=== PATIENT | female | born 1995 ===

== ENCOUNTER 2018-03-15 00:47 | Emergency (ER) | payer MEDICAID ==
[2018-03-15 01:04] VITALS: O2SAT 100
--- NOTE | 2018-03-15 01:52 | ED PDOC ---
HPI: General Adult <Sultan Vipin - Last Filed: 03/15/18 03:29> <Regis Montelongo - Last Filed: 03/15/18 05:43> Time Seen by Provider: 03/15/18 01:25 Chief Complaint (Nursing): GI Problem Additional Complaint(s): 22 yo female with no significant PMHx presents to ED with complaints of left forearm numbness and tingling that radiates to left 5th digit since 10:30 pm last night. Pt reports she had mild nausea and dizziness last evening. Patient states she had several episodes of vomiting 3 days ago which resolved. Denies any injury to left arm. Denies any neck pain or neck injury. Denies any headache , blurry vision, chest pain, dyspnea, dyspnea on exertion. Denies any hx cardiac problems. ([place] Supervising Attending Note - Supervising Attending Note The Documented history was done by the: Physician Supervisor Sound Technician The documented physical exam was done by the: Physician Supervisor Sound Technician The documented procedures were done by the: Physician Supervisor Sound Technician - Attestation: I have personally seen and examined this patient.: Yes I have fully participated in the care of the patient.: Yes I have reviewed all pertinent clinical information, including history, physical exam and plan: Yes <Regis Montelongo - Last Filed: 03/15/18 05:43> Past Medical History - Family History Family History: States: Diabetes <Sultan Vipin - Last Filed: 03/15/18 03:29> <Regis Montelongo - Last Filed: 03/15/18 05:43> Vital Signs: Last Vital Signs Temp 98.6 F 03/15/18 03:40 Pulse 82 03/15/18 03:40 Resp 18 03/15/18 03:40 BP 120/88 03/15/18 03:40 Pulse Ox 100 03/15/18 03:40 - Allergies Allergies/Adverse Reactions: Allergies Allergy/AdvReac Type Severity Reaction Status Date / Time No Known Allergies Allergy Verified 03/15/18 01:04 Review of Systems Constitutional: Negative for: Fever, Chills, Sweats ENT: Negative for: Ear Pain, Ear Discharge, Nose Congestion Cardiovascular: Negative for: Chest Pain, Palpitations, Orthopnea Respiratory: Negative for: Cough, Shortness of Breath Gastrointestinal: Negative for: Vomiting, Abdominal Pain, Diarrhea, Constipation Genitourinary Female: Negative for: Dysuria Musculoskeletal: Negative for: Neck Pain, Shoulder Pain Skin: Negative for: Rash Neurological: Positive for: Numbness. Negative for: Weakness, Incoordination, Change in Speech, Confusion, Headache Psych: Negative for: Anxiety <Sultan Vipin - Last Filed: 03/15/18 03:29> Physical Exam - Reviewed Vital Signs Reviewed: Yes - Physical Exam Appears: Positive for: Well, Non-toxic, No Acute Distress Head Exam: Positive for: NORMAL INSPECTION, NORMOCEPHALIC Skin: Positive for: Normal Color, Warm, Dry Eye Exam: Positive for: Normal appearance, EOMI, PERRL. Negative for: Nystagmus , Scleral icterus ENT: Positive for: Normal ENT Inspection Neck: Positive for: Normal, Painless ROM, Supple Cardiovascular/Chest: Positive for: Regular Rate, Rhythm. Negative for: Murmur Respiratory: Positive for: Normal Breath Sounds. Negative for: Crackles, Rales , Rhonchi, Wheezing Gastrointestinal/Abdominal: Positive for: Bowel Sounds, Soft. Negative for: Tenderness Extremity: Positive for: Normal ROM. Negative for: Tenderness, Pedal Edema DTR - Bicep (R): 2+ DTR - Bicep (L): 2+ DTR - Knee (R): 2+ DTR - Knee (L): 2+ Neurologic/Psych: Positive for: Alert, bench jeweler II-XII, Oriented, Gait. Negative for : Motor/Sensory Deficits, Aphasia, Facial Droop <Sultan Vipin - Last Filed: 03/15/18 03:29> - Laboratory Results Result Diagrams: 03/15/18 02:19 03/15/18 02:19 - ECG O2 Sat by Pulse Oximetry: 100 - Progress Condition: Re-examined, Improved <Sultan Vipin - Last Filed: 03/15/18 03:29> - Laboratory Results Result Diagrams: 03/15/18 02:19 03/15/18 02:19 <Regis Montelongo - Last Filed: 03/15/18 05:43> - Progress ED Course And Treament: Assessment: 22 year old female with no significant pmhx presents to ED with paresthesia of left forearm since last night. Plan: CBC CMP magnesium Urine hCG re-evaluate Re-evaluation: Patient reports her symptoms have resolved. CBC, CMP and magnesium are WNL. Patient is stable to discharge home. Advised to follow up with PMD in 2-3 days. Case d/w with on-call ED attending Dr. Montelongo (Sultan Vipin) Disposition - Disposition Disposition Time: 03:28 <Sultan Vipin - Last Filed: 03/15/18 03:29> <Regis Montelongo - Last Filed: 03/15/18 05:43> - Clinical Impression Clinical Impression: Paresthesia and pain of left extremity - Disposition Referrals: Dandre Pierson MD [Primary Care Provider] - Condition: GOOD Instructions: Paresthesias (DC) Forms: [facility] (Romanian)
[2018-03-15 02:28] LABS: BASO # 0.1 K/uL (0.0-0.2); BASO % 0.8 % (0.0-2.0); EOS % 0.6 % (0.0-4.0); HEMOGLOBIN 12.8 g/dL (12.0-16.0); LYMPH # 1.9 K/uL (1.0-4.3); LYMPH % 29.5 % (20.0-40.0); MEAN CELL VOLUME 88.9 fl (81.0-99.0); MEAN CORPUSCULAR HEMOGLOBIN 30.3 pg (27.0-31.0); MEAN CORPUSCULAR HGB CONC 34.1 g/dL (33.0-37.0); MEAN PLATELET VOLUME 8.9 fl (7.2-11.7); MONO # 0.5 K/uL (0.0-0.8); MONO % 7.2 % (0.0-10.0); NEUT # 3.9 K/uL (1.8-7.0); NEUT % 61.9 % (50.0-75.0); RBC 4.22 Mil/uL (3.80-5.20); RED CELL DISTRIBUTION WIDTH 13.1 % (11.5-14.5); WHITE BLOOD COUNT 6.3 K/uL (4.8-10.8)
[2018-03-15 02:39] LABS: ALB/GLOB RATIO 1.3 (1.0-2.1); ALBUMIN 4.6 g/dL (3.5-5.0); ALT/SGPT 21 U/L (9-52); AST/SGOT 20 U/L (14-36); BLOOD UREA NITROGEN 11 mg/dl (7-17); CALCIUM 9.6 mg/dL (8.4-10.2); GFR AFRICAN-AMERICAN > 60; GFR NON-AFRICAN AMERICAN > 60
[2018-03-15 04:46] VITALS: BP 120/88; PULSE 82; RESP 18; TEMP 98.6
== END 2018-03-15 03:48 | disposition home or self-care (01) ==
LOC: H.ER 00:47
DX: R20.0 Anesthesia of skin (principal)